=== PATIENT | male | born 1960 | race Caucasian/White ===

== ENCOUNTER 2024-09-01 11:41 | Emergency (ER) | payer SELFPAY ==
[2024-09-01 12:02] VITALS: BP 160/92; PULSE 56; RESP 17; TEMP 36.6; O2SAT 95
--- NOTE | 2024-09-01 12:10 | ED_ITS ---
HPI - Dental/Oral General: Chief complaint: Dental/Oral Stated complaint: left side tooth pain Time Seen by Provider: 09/01/24 11:49 Source: patient Mode of arrival: ambulatory Limitations: no limitations History of Present Illness: 63-year-old male states he been having d ental pain over this last week pain in left upper molar has a history reported tissue denies any fever denies any trismus rates his pain an 8 out of 10 currently. Associated symptoms: Denies fever(s) Related Data Previous Rx's ?Medication ?Instructions ?Recorded cephalexin 500 mg capsule 500 mg PO TID 7 days #21 cap s 09/01/24 naproxen 500 mg tablet (Naprosyn) 500 mg PO BID PRN pa in #20 tabs 09/01/24 Allergies Allergy/AdvReac Type Severity Reaction Status Date / Time No Known Allergies Allergy Verified 09/01/24 12:05 Review of Systems Const: Denies: fever(s), chills, body aches or change in appetite ENMT: Reports: dental pain; Denies: throat pain Card: Denies: chest pain Resp: Denies: dyspnea GI: Denies: abdominal pain, nausea, vomiting or diarrhea Musc: Denies: neck pain or back pain Skin/Breast: Denies: rash Neuro: Denies: headache(s) Physical Exam Const: COMMON NORMALS: no acute distress, patient oriented x3 and healthy appearing HENMT: COMMON NORMALS: normocephalic and atraumatic HEAD & SCALP: normocephalic and atraumatic OTHER: Poor dentition tenderness to the left upper molar no abscess or trismus Neck/C-Spine: COMMON NORMALS: full ROM and supple Chest: COMMONS NORMALS: normal inspection of the chest Resp: COMMON NORMALS: normal respiratory effort Cardio: COMMON NORMALS: regular rate RATE: regular rate Extremity: COMMON NORMALS: normal to inspection and full ROM Neuro: COMMON NORMALS: patient oriented x3, moves all extremities and no focal motor deficits Psych: COMMON NORMALS: mental status grossly normal, Normal thought process present and cooperative THOUGHT PROCESS: Normal thought process present Skin: COMMON NORMALS: no rashes or lesions noted and no wounds GENERAL SKIN EXAM: no rashes or lesions noted Course Vital Signs: Vital signs: Vital Signs Temperature 97.8 F 09/01/24 12:02 Pulse Rate 56 L 09/01/24 12:02 Respiratory Rate 17 09/01/24 12:02 Blood Pressure 160/92 09/01/24 12:02 Pulse Oximetry 95 09/01/24 12:02 Oxygen Delivery Me thod Room Air 09/01/24 12:02 MDM - Dental/Oral Medical Decision Making Patient presents here dental pain no abscess or trismus we will place him on antibiotics he is to follow-up with dentist return if worsening. Medical Records I reviewed the patient's medical records. No radiology studies performed this visit Discharge Plan Discharge Patient Disposition: Home Clinical Impression: Pain, dental Condition: Stable Prescriptions: New cephalexin 500 mg capsule 500 mg PO TID 7 Days Qty: 21 0RF naproxen [Naprosyn] 500 mg tablet 500 mg PO BID PRN (Reason: pain) Qty: 20 0RF Discharge Orders: Discharge ED (Routine); Ordered 09/01/24 Ordered By: Mario Alberto Treviño Discharge Diet: Advance as tolerated Discharge Activity: Resume usual activity Patient Instructions: Toothache (ED) Print Language: Kinyarwanda Coding Level of Care Code ED Fuel Operator for Rito Ashley
[2024-09-01 12:18] VITALS: BP 149/97; PULSE 58; O2SAT 96
[2024-09-01] MEDS: HYDROcodone-acetaminophen 5-325 mg Tablet 1 TAB PO (12:23)
[2024-09-01] MEDS: cephALEXin 500 mg Capsule PO (12:23)
== END 2024-09-01 12:23 | disposition home or self-care (01) ==
PROVIDERS: Emergency Provider Emergency Medicine
DX: K08.89 Other specified disorders of teeth and supporting structures (principal)
CPT/HCPCS: 99285; J9999